=== PATIENT | female | born 1955 | race African-American/Black ===

== ENCOUNTER 2017-05-22 10:59 | Outpatient (CLI) | payer BC | END 2017-05-22 11:00 | disposition home or self-care (01) | LOC: BICMAMMO 10:59 | PROVIDERS: ATTEND Family Medicine | DX: Z12.31 Encounter for screening mammogram for malignant neoplasm of breast (principal); Z80.3 Family history of malignant neoplasm of breast | CPT/HCPCS: 77063; 77067 ==

== ENCOUNTER 2018-02-19 17:53 | Emergency (ER) | payer BC | END 2018-02-19 19:17 | disposition home or self-care (01) | LOC: ERS 17:53 | DX: S16.1XXA Strain of muscle, fascia and tendon at neck level, initial encounter (principal); M54.6 Pain in thoracic spine; E11.9 Type 2 diabetes mellitus without complications; I10 Essential (primary) hypertension; Z79.899 Other long term (current) drug therapy; V49.9XXA Car occupant (driver) (passenger) injured in unspecified traffic accident, initial encounter | CPT/HCPCS: 99283 ==

== ENCOUNTER 2018-05-28 13:45 | Outpatient (CLI) | payer BC ==
--- NOTE | 2018-05-28 15:29 | BD ---
DEXA BONE DENSITY STUDY: Date: 05/28/18 HISTORY: Postmenopausal. FINDINGS: Lumbar Spine: BMD (g/cm2) L1 1.093 T-Score: +0.9 L2 1.239 T-Score: +1.9 L3 1.289 T-Score: +1.9 L4 1.192 T-Score: +1.2 Total 1.205 T-Score: +1.4 Left Femoral Neck: 0.868 T-Score: +0.2 Total Femur: 1.191 T-Score: +2.0 IMPRESSION: Normal bone mineral density of the lumbar spine and left femoral neck. POS: [facility]PC
--- NOTE | 2018-06-07 13:18 | MMO ---
Bilateral MAMMO Bilat Screen [facility]. CLINICAL HISTORY: Patient is 63 years old and is seen for screening. The patient has the following family history of breast cancer: paternal aunt, at age 40 and niece, at age 30. The patient has no personal history of cancer. The patient has a history of left needle biopsy at age 18 - benign. VIEWS: The views performed were: bilateral craniocaudal with tomosynthesis and bilateral mediolateral oblique with tomosynthesis. FILMS COMPARED: The present examination has been compared to prior imaging studies performed at [facility] on 05/22/2017, and at [facility] on 06/14/2011. MAMMOGRAM FINDINGS: There are scattered fibroglandular densities. There are no suspicious masses, calcifications or areas of architectural distortion. IMPRESSION: THERE IS NO MAMMOGRAPHIC EVIDENCE OF MALIGNANCY. A ROUTINE FOLLOW-UP MAMMOGRAM IN 1 YEAR IS RECOMMENDED. THE RESULTS OF THIS EXAM WERE SENT TO THE PATIENT. ACR BI-RADS Category 1 - Negative MAMMOGRAPHY NOTE: 1. A negative mammogram report should not delay a biopsy if a dominant of clinically suspicious mass is present. 2. Approximately 10% to 15% of breast cancers are not detected by mammography. 3. Adenosis and dense breasts may obscure an underlying neoplasm.
== END 2018-05-28 13:46 | disposition home or self-care (01) ==
LOC: BICMAMMO 13:45
PROVIDERS: ATTEND Family Medicine
DX: Z12.31 Encounter for screening mammogram for malignant neoplasm of breast (principal); Z13.820 Encounter for screening for osteoporosis; Z80.3 Family history of malignant neoplasm of breast
CPT/HCPCS: 77063; 77067; 77080

== ENCOUNTER 2019-08-28 19:30 | Outpatient (CLI) | payer OTHER | END 2019-08-28 19:31 | disposition home or self-care (01) | LOC: SLEEPLAB 19:30 | PROVIDERS: ATTEND Family Medicine | DX: G47.33 Obstructive sleep apnea (adult) (pediatric) (principal); R53.83 Other fatigue; I10 Essential (primary) hypertension; R06.83 Snoring; G47.00 Insomnia, unspecified; G47.10 Hypersomnia, unspecified; E11.9 Type 2 diabetes mellitus without complications; E66.9 Obesity, unspecified; Z68.36 Body mass index [BMI] 36.0-36.9, adult | CPT/HCPCS: 95811 ==

== ENCOUNTER 2020-07-20 15:12 | Outpatient (CLI) | payer BC | END 2020-07-20 15:13 | disposition home or self-care (01) | LOC: BICMAMMO 15:12 | PROVIDERS: ATTEND Family Medicine | DX: Z12.31 Encounter for screening mammogram for malignant neoplasm of breast (principal); Z80.3 Family history of malignant neoplasm of breast | CPT/HCPCS: 77063; 77067 ==

== ENCOUNTER 2021-10-28 06:31 | Emergency (ER) | payer BC, MEDICARE | END 2021-10-28 08:13 | disposition home or self-care (01) | LOC: ERS 06:31 | DX: J22 Unspecified acute lower respiratory infection (principal); E11.9 Type 2 diabetes mellitus without complications; I10 Essential (primary) hypertension; Z79.84 Long term (current) use of oral hypoglycemic drugs; Z79.899 Other long term (current) drug therapy | CPT/HCPCS: 71045 ==

== ENCOUNTER 2022-02-23 23:36 | Emergency (ER) | payer MEDICARE, OTHER ==
[2022-02-24 00:34] LABS: #Lymphocytes 0.8 thou/uL (1.20-3.40); #Neutrophils 15.8 thou/uL (1.40-6.50); %Basophils 0.1 % (0.0-1.0); %Eosinophils 0.2 % (0.0-10.0); %Lymphocytes 4.7 % (21.0-51.0); %Monocytes 5.4 % (0.0-10.0); %Neutrophils 89.7 % (42.0-75.0); Hemoglobin 13.8 g/dL (12.0-16.0); Mean Corpuscular HGB CONC 33.1 g/dL (32.0-36.0); Mean Corpuscular Hemoglobin 30.2 pg (27.0-31.0); Mean Corpuscular Volume 91.3 fl (78.0-98.0); Mean Platelet Volume 7.8 fL (7.4-10.4); Platelet Count 242 10x3/uL (130-400); RBC Distribution Width 11.6 % (11.5-14.5); Red Blood Cell (RBC) Count 4.57 mill/uL (4.20-5.40); White Blood Cell (WBC) Count 17.6 10x3/uL (4.8-10.8)
[2022-02-24] MEDS ORDERED: Ondansetron PF 4 MG/2 ML Vial ONE ×2 (00:34→03:00)
[2022-02-24 00:48] LABS: ALT (SGPT) 20 U/L (8-55); AST (SGOT) 16 U/L (5-34); Albumin 4.5 g/dL (3.4-4.8); Alkaline Phosphatase 88 U/L (40-110); Anion Gap 14 mmol/L (10-20); BUN (Urea Nitrogen) 21 mg/dL (9.8-20.1); Bilirubin, Total 0.5 mg/dL (0.2-1.2); Calc. Creatinine Clearance 0 mL/min (70-130); Calcium 9.9 mg/dL (7.8-10.44); Carbon Dioxide 24 mmol/L (23-31); Chloride 106 mmol/L (98-107); Estimated GFR 65; Globulin 3.2 g/dL (2.4-3.5); Glucose 225 mg/dL (80-115); Lipase 9 U/L (8-78); Magnesium 1.9 mg/dL (1.6-2.6); Protein, Total 7.7 g/dL (5.8-8.1); Sodium 140 mmol/L (136-145)
[2022-02-24] MEDS ORDERED: Morphine 4 MG/ML VIAL ONE (02:51)
[2022-02-24 03:26] LABS: Bilirubin Negative (Negative); Blood, Urine Negative (Negative); Clarity Clear (Clear); Glucose, Urine (Dipstick) 100 mg/dL (Negative); Ketone, Urine Negative (Negative); Leukocyte Negative Leu/uL (Negative); Nitrite Negative (Negative); Protein, Urine (Dipstick) 10 mg/dL (Neg-Trace); Specific Gravity, Urine 1.042 (1.002-1.036); Urobilinogen Normal mg/dL (Less than 2); pH, Urine 5.5 (5.0-9.0)
[2022-02-24] MEDS ORDERED: Iopamidol 370 76% 100 ML VIAL ONE (11:09)
== END 2022-02-24 03:51 | disposition home or self-care (01) ==
LOC: ERS 23:36
DX: R10.9 Unspecified abdominal pain (principal); R11.2 Nausea with vomiting, unspecified; E11.9 Type 2 diabetes mellitus without complications; I10 Essential (primary) hypertension
CPT/HCPCS: 36415; 74177; 80053; 81003; 83690; 83735; 85025; 87086; 96374; 96375; 96376; J2270; J2405; Q9967

== ENCOUNTER 2022-03-24 12:11 | Outpatient (CLI) | payer MEDICARE | END 2022-03-24 12:12 | disposition home or self-care (01) | LOC: BICMAMMO 12:11 | PROVIDERS: ATTEND Family Medicine | DX: Z12.31 Encounter for screening mammogram for malignant neoplasm of breast (principal); Z91.89 Other specified personal risk factors, not elsewhere classified; Z80.3 Family history of malignant neoplasm of breast | CPT/HCPCS: 77063; 77067 ==

== ENCOUNTER 2023-03-01 07:46 | Emergency (ER) | payer MEDICARE ==
[2023-03-01] MEDS ORDERED: Lidocaine 1% MPF 2 ML VIAL ONE (08:10)
[2023-03-01] MEDS ORDERED: cefTRIAXone (ROCEPHIN) 1 GM VIAL ONE (08:10)
[2023-03-01] MEDS ORDERED: Dexamethasone 10 MG/ML VIAL ONE (08:10)
[2023-03-01 08:12] LABS: #Eosinphils 0.2 thou/uL (0.0-0.7); #Monocytes 0.4 thou/uL (0.11-0.59); #Neutrophils 7.6 thou/uL (1.40-6.50); %Basophils 0.3 % (0.0-1.0); %Eosinophils 1.9 % (0.0-10.0); %Lymphocytes 12.5 % (21.0-51.0); %Monocytes 4.6 % (0.0-10.0); %Neutrophils 80.4 % (42.0-75.0); Hematocrit 39.5 % (36.0-47.0); Hemoglobin 12.8 g/dL (12.0-16.0); Mean Corpuscular HGB CONC 32.4 g/dL (32.0-36.0); Mean Corpuscular Volume 89.6 fl (78.0-98.0); Mean Platelet Volume 10.1 fL (7.4-10.4); Platelet Count 246 10x3/uL (130-400); RBC Distribution Width 12.5 % (11.5-14.5); Red Blood Cell (RBC) Count 4.41 mill/uL (4.20-5.40); White Blood Cell (WBC) Count 9.5 10x3/uL (4.8-10.8)
[2023-03-01 08:41] LABS: ALT (SGPT) 22 U/L (8-55); AST (SGOT) 19 U/L (5-34); Albumin 4.2 g/dL (3.4-4.8); Alkaline Phosphatase 87 U/L (40-110); Anion Gap 13 mmol/L (10-20); BUN (Urea Nitrogen) 13 mg/dL (9.8-20.1); Bilirubin, Total 0.4 mg/dL (0.2-1.2); Calc. Creatinine Clearance 0 mL/min (70-130); Carbon Dioxide 24 mmol/L (23-31); Chloride 109 mmol/L (98-107); Estimated GFR 68; Globulin 2.9 g/dL (2.4-3.5); Glucose 167 mg/dL (80-115); Potassium 3.9 mmol/L (3.5-5.1); Protein, Total 7.1 g/dL (5.8-8.1); Sodium 142 mmol/L (136-145)
[2023-03-01 08:44] LABS: Troponin I Less than 0.010 ng/mL (< 0.028)
[2023-03-01 09:19] LABS: SARS-CoV-2 NAA Rapid Test Not Detected (NotDetected)
== END 2023-03-01 09:30 | disposition home or self-care (01) ==
LOC: ERS 07:46
DX: J18.9 Pneumonia, unspecified organism (principal); E11.9 Type 2 diabetes mellitus without complications; I10 Essential (primary) hypertension; Z79.84 Long term (current) use of oral hypoglycemic drugs; Z79.899 Other long term (current) drug therapy
CPT/HCPCS: 0240U; 71045; 80053; 84484; 85025; 93005; 96372; J0696; J1100

== ENCOUNTER 2023-09-15 21:27 | Emergency (ER) | payer MEDICARE, OTHER ==
[2023-09-15] MEDS ORDERED: Ketorolac Tromethamine 30 MG (1 mL) VIAL ONE (22:57)
== END 2023-09-15 23:25 | disposition home or self-care (01) ==
LOC: ERS 21:27
DX: M16.0 Bilateral primary osteoarthritis of hip (principal); M25.552 Pain in left hip; M25.551 Pain in right hip; E11.9 Type 2 diabetes mellitus without complications; I10 Essential (primary) hypertension; Z79.84 Long term (current) use of oral hypoglycemic drugs
CPT/HCPCS: 72170; 82962; 96372; 99283; J1885; 36416

== ENCOUNTER 2025-03-03 13:57 | Outpatient (CLI) | payer MEDICARE, OTHER | END 2025-03-03 13:58 | disposition home or self-care (01) | LOC: BICMAMMO 13:57 | PROVIDERS: ATTEND Family Medicine | DX: Z12.31 Encounter for screening mammogram for malignant neoplasm of breast (principal); Z80.3 Family history of malignant neoplasm of breast; Z91.89 Other specified personal risk factors, not elsewhere classified | CPT/HCPCS: 77063; 77067 ==